=== PATIENT | male | born 1955 | race Caucasian/White ===

== ENCOUNTER 2019-07-06 10:16 | Outpatient (CLI) | payer MEDICARE, SELFPAY ==
--- NOTE | ~2019-07-06 | CT_ITS ---
EXAMINATION: CT lung screening EXAM DATE: 07/06/2019 10:50 INDICATION: Personal history of nicotine dependence. TECHNIQUE: Spiral low dose CT of the chest without contrast. Axial, coronal and sagittal images were reviewed. The dose-length product (DLP) for this examination was 174.03 mGy-cm. The exposure was t ailored according to patient size (auto mA exposure control), and iterative reconstruction (ASIR) was used as additional dose reduction technique. Comparison is made to prior examination from 07/03/2017. FINDINGS: There is a 6-7 mm nodule in the superior segment of the left lower lobe, measuring about 6 mm before. Probably unchanged accounting for improvements in scan technique. There is some debris i n the trachea. There is mild emphysema and hyperinflation. There is no mediastinal, hilar or axillar y lymphadenopathy. There are no pleural or pericardial effusions. There is no pneumothorax. Hea rt normal in size. There is moderate coronary arterial calcification, arterial sclerosis. Upper abd omen is unremarkable. Old right rib fractures. Cervical fusion hardware. Moderate thoracic spondyl osis. Diffuse loss of thoracic vertebral body heights. IMPRESSION: Lung-RADS category 2, benign appearance or behavior (<1% chance of malignancy); recommend continued LDCT screening in 1 year. Reviewed, dictated and finalized at location A. [employer]
== END 2019-07-06 10:17 | disposition home or self-care (01) ==
LOC: CHSIMG 10:21
PROVIDERS: PCP Internal Medicine; Visit Provider Internal Medicine
DX: Z12.2 Encounter for screening for malignant neoplasm of respiratory organs (principal); Z87.891 Personal history of nicotine dependence
CPT/HCPCS: G0297

== ENCOUNTER 2019-07-14 15:29 | Outpatient (CLI) | payer MEDICARE, SELFPAY ==
--- NOTE | ~2019-07-14 | MR_ITS ---
EXAMINATION: MR lumbar spine wo con DATE: 07/14/2019 16:17 INDICATION: Lumbago. TECHNIQUE: Magnetic resonance imaging (MRI) of the lumbar spine was performed without intravenous con trast. Sequences included sagittal T2-weighted FSE, sagittal T2-weighted FS FSE, sagittal T1-weighted FSE, and axial T2-weighted FSE. COMPARISON: Lumbar spine MRI 01/04/2017 FINDINGS: There is 14 degrees dextroscoliosis of thoracolumbar spine. There is 3 mm retrolisthesis of L1 on L2 and L2 on L3, 3 mm anterolisthesis of L4 on L5, and 3 mm retrolisthesis of L5 on S1. There is mild chronic anterior wedging of T11 and L1 vertebral bodies. There is severely decreased disc hei ght from T11-T12 through L5-S1. The distal spinal cord signal intensity is normal. The conus medullar is is at T12-L1. The following disc levels are specifically discussed: L1-L2: The disc is bulging and has an annular fissure. There is severe bilateral facet joint osteoart hritis. There is moderate right and severe left neural foraminal stenosis. There is mild central magaly l stenosis. L2-L3: The disc is bulging and has an annular fissure. There is severe bilateral facet joint osteoart hritis. There is moderate bilateral neural foraminal stenosis. There is mild central canal stenosis. L3-L4: The disc is bulging. There is severe bilateral facet joint osteoarthritis. There is moderate b ilateral neural foraminal stenosis. There is mild central canal stenosis. L4-L5: The disc is bulging and has an annular fissure. There is severe bilateral facet joint osteoart hritis. There is mild bilateral neural foraminal stenosis. There is mild central canal stenosis. L5-S1: The disc is bulging and has an annular fissure. There is mild right and moderate left facet melyssa int osteoarthritis. There is moderate bilateral neural foraminal stenosis. There is mild central magaly l stenosis. IMPRESSION: 1. Severe lumbar spondylosis. 2. Thoracolumbar dextroscoliosis. Reviewed, dictated and finalized at location A. PARTUM NURSE
== END 2019-07-14 15:30 | disposition home or self-care (01) ==
LOC: CHSIMG 15:30
PROVIDERS: PCP Internal Medicine; Visit Provider Anesthesiology Pain Medicine
DX: M54.5 Low back pain (principal); M48.00 Spinal stenosis, site unspecified; M54.16 Radiculopathy, lumbar region
CPT/HCPCS: 72148

== ENCOUNTER 2019-11-08 12:51 | Outpatient (RCR) | payer MEDICARE, SELFPAY ==
--- NOTE | 2019-11-12 06:55 | PTOPEVAL ---
Thank you for referring Troy Eubanks to [facility]. Please review, sign, date and return this plan of care HENNY. I agree with and certify that the following plan of care is medically necessary. Referring Physician Date Admitting Provider: Attending Provider: Sneha Ham, ALISON-LINDASY Referring Provider: *PT Outpatient Evaluation Start: 11/08/19 13:08 Freq: Status: Active Protocol: Document 11/08/19 13:08 BRYCE (Rec: 11/08/19 14:04 BRYCE [email or web address]) Therapy Assessment Status Assessment Status Assessment Status Evaluation Evaluation Information Problem Diagnosis lumbar radiculopathy, low back pain Onset 10/18/19 Additional Evaluation Detail Oswestry=62% limitation Subjective Information Pt. reports that he had Query Text:As Reported By Patient/ injection for back pain in Family July. He reports that he was doing well, till about 3 weeks ago. He reports sudden increase in pain in the middle of the night. He reports that he has improved since initial pain, but no a large amount. He describes dull stiff ache in the middle of the low back and a numb tingling feeling into both legs. He reports that he cannot sleep at night without pain increase. He reports that his goal is to decrease his low back pain. Prior Level of Function Activity Level (Last 3 Months) Occupation retired Hand Dominance Right Activity of Daily Living Ability Independent Indoor/Home Mobility Independent Community Mobility Independent Stairs Ability Independent Functional Cognition (Planning, Shopping Independent , Taking Medications) Cooking Yes Cleaning Yes Laundry Yes Shopping Yes Driving Yes Pain Assessment Pain Scale Pain Scale Used Numeric (1 - 10) Self Report Pain Assessment Lower Back Reported Pain Level 7 Pain Description Aching,Dull Pain Frequency Chronic Lowest Pain Intensity 7 Greatest Pain Intensity 10 Pain Aggravating Factors Sitting Pain Score Pain Score 7: Shasta
--- NOTE | 2019-12-17 07:11 | PTOPEVAL ---
Thank you for referring Troy Eubanks to [facility] [place] [facility] [place]. Please review, sign, date and return this plan of care HENNY. I agree with and certify that the following plan of care is medically necessary. Referring Physician Date Admitting Provider: Attending Provider: Sneha Ham, DIRECTOR OF MARKET RESEARCH-LINDSAY Referring Provider: *PT Outpatient Evaluation Start: 11/08/19 13:08 Freq: Status: Active Protocol: Document 12/08/19 14:00 BRYCE (Rec: 12/17/19 07:09 BRYCE [email or web address]) Therapy Assessment Status Assessment Status Assessment Status Progress Evaluation Information Problem Diagnosis lumbar radiculopathy, low back pain Onset 10/18/19 Additional Evaluation Detail Oswestry=50% limitation Subjective Information Pt. reports that therapy has Query Text:As Reported By Patient/ helped to reduce his pain. He Family notices that he is walking more comfortably and is able to perform light tasks around his yard. He states that given his progress he would like to continue to further improve his strength in order to walk further and stand better. Pain Assessment Timing of Pain Assessment Timing of Pain Assessment Pre-Treatment Pain Scale Pain Scale Used Numeric (1 - 10) Self Report Pain Assessment Lower Back Reported Pain Level 6 Pain Score Pain Score 6: Self Report Cervical and Lumbar Muscle Testing Lumbar Strength Upper Abdominal Strength 4-Good- Lower Abdominal Strength 3 Fair Lower Extremity Muscle Strength Testing General Lower Extremity Strength Gross Lower Extremity Strength bilateral hip flexion 5/5, bilateral hip extension 4/5, bilateral hip abduction 4/5, bilateral knee flexion 5/5, bilateral knee extension 5/5, bilateral ankle dorsiflexion 5 /5 Palpation Assessment Palpation Palpation Continue to note TTP along the area of the lumbar parapsinals and into the gluteal mm. Gait Assessment Gait Assessment Additional Ambulation Comments Pt. presents with improved flako and improved foot clearence with ambulation. PT Clinical Summary Clinical Summary Protocol: PTEVCODE PT Clinical Summary Pt. castillo attended a total of 10
== END 2020-01-05 08:47 | disposition home or self-care (01) ==
LOC: CHSPT 12:51
PROVIDERS: PCP Internal Medicine; Visit Provider Nurse Practitioner Family
DX: M54.5 Low back pain (principal); M54.10 Radiculopathy, site unspecified; M48.00 Spinal stenosis, site unspecified
CPT/HCPCS: 97014; 97110; 97140; 97161; G0283

== ENCOUNTER 2019-12-24 09:17 | Outpatient (CLI) | payer MEDICARE, SELFPAY ==
--- NOTE | ~2019-12-24 | XR_ITS ---
XR ankle RT min 3V DATE: 12/24/2019 09:36 INDICATION: Right ankle pain TECHNIQUE: 4 views COMPARISON: None FINDINGS: There is severe hypertrophic osteoarthritic change at the tibiotalar joint with severe join t space narrowing and spurring, patchy lucency and sclerosis at the talar dome. There is a plate and screws and cerclage wire along the distal fibula. No recent fracture or dislocation of the ankle or disruption of the ankle mortise is detected. IMPRESSION: Severe tibiotalar osteoarthritic changes Plate and screws along distal fibula Reviewed, dictated and finalized at location A.
== END 2019-12-24 09:18 | disposition home or self-care (01) ==
LOC: CHSIMG 09:19
PROVIDERS: PCP Internal Medicine; Visit Provider Internal Medicine
DX: M25.571 Pain in right ankle and joints of right foot (principal)
CPT/HCPCS: 73610

== ENCOUNTER 2021-12-12 07:00 | Outpatient (CLI) | payer MEDICARE, SELFPAY ==
--- NOTE | ~2021-12-12 | CT_ITS ---
EXAMINATION: CT lung screening DATE: 12/12/2021 09:03 INDICATION: History of tobacco dependence. TECHNIQUE: Computed tomography (CT) of the chest was performed without intravenous contrast. The dose -length product was 157.84 mGy-cm. Automated exposure control and iterative reconstruction technique were employed. COMPARISON: CT dated 07/06/2019 FINDINGS: Heart size normal. No significant pleural or pericardial effusion. No thoracic lymphadenopa thy. No significant pleural or pericardial effusion. Mild atherosclerosis. There are small low-density lesions in the liver with a new lesion in the left hepatic lobe. Further evaluation with contrast-enhanced CT or MRI is recommended. Increased size of 8 mm left lower lobe no dule, superior segment. No endobronchial lesions. No pneumothorax. No focal airspace consolidation. T here is right lower lobe atelectasis. IMPRESSION: 1. Lung Rads category 4B, very suspicious : Recommend follow-up PET/CT scan. Reviewed, dictated and finalized at location A.
[2021-12-12 08:07] LABS: Basophils Absolute Auto 0.05 K/mm3 (0.00-0.10); Basophils Percent Auto 0.9 % (0.0-1.0); Eosinophils Absolute Auto 0.35 K/mm3 (0.02-0.50); Eosinophils Percent Auto 6.2 % (1.0-6.0); Hematocrit 41.9 % (37.0-46.0); Hemoglobin 14.5 g/dL (12.4-15.3); Immature Granulocyte Absolute 0.01 K/mm3 (0.00-0.00); Immature Granulocyte Percent A 0.2 % (0.0-0.0); Lymphocytes Absolute Auto 1.71 K/mm3 (1.10-4.50); Lymphocytes Percent Auto 30.2 % (18.0-42.0); Mean Corpuscular HGB Conc 34.6 g/dL (32.0-36.0); Mean Corpuscular Hemoglobin 31.1 pg (27.0-31.0); Mean Corpuscular Volume 89.9 fL (78.0-102.0); Mean Platelet Volume 10.7 fl (8.7-11.0); Monocytes Absolute Auto 0.46 K/mm3 (0.10-0.90); Monocytes Percent Auto 8.1 % (2.0-11.0); Neutrophils Absolute Auto 3.1 K/mm3 (1.7-7.2); Neutrophils Percent Auto 54.4 % (50.0-70.0); Platelet Count Result 178 K/mm3 (150-420); Red Blood Count 4.66 M/mm3 (4.70-6.10); Red Cell Distribution Width 12.6 % (11.6-14.4); White Blood Count 5.7 K/mm3 (4.8-10.8)
[2021-12-12 08:17] LABS: Add Urine Microscopic? NO; Appearance Urine Clear (Clear); Bilirubin Urine Negative (Negative); Blood Urine Negative (Negative); Color Urine Light Yellow (Yellow); Glucose Urine UA Negative (Negative); Ketones Urine Negative (Negative); Leukocyte Esterase Ur Negative (Negative); Nitrate Urine Negative (Negative); Protein Urine Negative (Negative); Specific Grav Ur 1.025 (1.010-1.020); Urobilinogen Urine 0.2 mg/dL (0.2-1.0); pH Urine 5.5 (5.0-8.0)
[2021-12-12 08:40] LABS: Alanine Aminotransferase 24 U/L (16-63); Albumin Level 3.8 g/dL (3.4-5.0); Alkaline Phosphatase 61 U/L (46-116); Anion Gap 9 mmol/L (8-16); Aspartate Amino Transferase 15 U/L (15-37); Bilirubin,Total 0.6 mg/dL (0.00-1.00); Blood Urea Nitrogen 13 mg/dL (7-18); Calcium 8.3 mg/dL (8.5-10.1); Carbon Dioxide 25 mmol/L (21-32); Chloride 107 mmol/L (98-108); Cholesterol 183 mg/dL (0-200); Estimated Glomerular Filt Rate > 60; Glucose 96 mg/dL (70-99); HDL Direct 47 mg/dL (40-60); LDL Cholesterol Calculated 115 mg/dL (<130); Osmolality Calculated 292 mOsm/kg (285-295); Potassium 4.1 mmol/L (3.5-5.1); Prostate Specific Antigen 11.7 ng/mL (< OR = 4.0); Sodium 141 mmol/L (136-145); Thyroid Stimulating Hormone 0.92 uIU/mL (0.36-3.74); Total Protein 6.6 g/dL (6.4-8.2); Triglycerides 103 mg/dL (0-150)
[2021-12-12 09:25] LABS: CRP < 0.5 mg/dL (0.0-0.9)
== END 2021-12-12 07:01 | disposition home or self-care (01) ==
PROVIDERS: PCP Internal Medicine; Visit Provider Internal Medicine
DX: Z12.2 Encounter for screening for malignant neoplasm of respiratory organs (principal); Z87.891 Personal history of nicotine dependence; G89.29 Other chronic pain; E78.5 Hyperlipidemia, unspecified; Z12.5 Encounter for screening for malignant neoplasm of prostate; Z00.00 Encounter for general adult medical examination without abnormal findings
CPT/HCPCS: 36415; 71271; 80053; 80061; 81003; 84153; 84443; 85025; 86140; G0103

== ENCOUNTER 2021-12-28 09:20 | Outpatient (CLI) | payer MEDICARE, SELFPAY ==
--- NOTE | 2021-12-28 13:07 | PFT_ITS ---
This report was recreated on February 01, 2022. Original report was signed by Dr. Bart Mccartney on December 28, 2021 at 1328. PFT Procedure Performed PFT Procedure Performed Spirometry with Pre/Post Bronchodilator Plethysmography (Lung Vol) Diffusing Cap (DLCO) Flow Vol Loop PFT Interpretation DOS: 12/28/2021 REQUESTING: Dr Mccartney REASON FOR TESTING: Dyspnea PULMONARY FUNCTION TESTS Results are reliable and reproducible. Spirometry: Pre-bronchodilator FEV1 is 99% predicted, 2.92 L, normal. Pre- bronchodilator FVC is 125% predicted, 4.76 L. FEV1/FVC ratio is 78% predicted, normal. The TNX96-84% is 37% predicted, 1.14 L. After bronchodialtor, there is a 1% increase in the FVC, and 1% decreased in the FEV1, and 11% decrease in FEF25- 75%. These are not statistically significant amounts. Lung volumes: TLC is 98% predicted, 5.97 L. RV is 52% predicted, 1.11 L. RV/TLC is below normal limits, 20% predicted. FRC 78%, 2.60 L. ERV 1.28 L. Airway resistance is 259%, elevated. Diffusion: DLCO is 87% predicted, 18.7 mL/min/mmHg, normal. DLCO/VA is 80%, 2.93 ml/min/mmHg, normal. Flow volume loop: Sawtooth pattern of the expiratory limb which has limited clinical relevance. IMPRESSION: Normal spirometry without response to bronchodilator. Normal lung volumes. No hyperinflation. No air trapping. Normal diffusion. Lack of response to bronchodilator should not preclude use if clinically indicated. Lucy Mccartney MD This dictation may have been done utilizing a voice recognition system. Attempts have been made to correct errors. However, there may be uncorrected grammatical, spelling, and recognition errors present. Report Initialized date/time: Lucy Mccartney MD 12/28/21 / 1309 Electronically signed by: uLcy Mccartney MD 12/28/21 [id number] [facility]
--- NOTE | 2021-12-28 13:07 | PFT_ITS ---
This report was recreated on February 01, 2022. Original report was signed by Dr. Bart Mccartney on December 28, 2021 at 1328. PFT Procedure Performed PFT Procedure Performed Spirometry with Pre/Post Bronchodilator Plethysmography (Lung Vol) Diffusing Cap (DLCO) Flow Vol Loop PFT Interpretation DOS: 12/28/2021 REQUESTING: Dr Mccartney REASON FOR TESTING: Dyspnea PULMONARY FUNCTION TESTS Results are reliable and reproducible. Spirometry: Pre-bronchodilator FEV1 is 99% predicted, 2.92 L, normal. Pre- bronchodilator FVC is 125% predicted, 4.76 L. FEV1/FVC ratio is 78% predicted, normal. The BRA66-39% is 37% predicted, 1.14 L. After bronchodialtor, there is a 1% increase in the FVC, and 1% decreased in the FEV1, and 11% decrease in FEF25- 75%. These are not statistically significant amounts. Lung volumes: TLC is 98% predicted, 5.97 L. RV is 52% predicted, 1.11 L. RV/TLC is below normal limits, 20% predicted. FRC 78%, 2.60 L. ERV 1.28 L. Airway resistance is 259%, elevated. Diffusion: DLCO is 87% predicted, 18.7 mL/min/mmHg, normal. DLCO/VA is 80%, 2.93 ml/min/mmHg, normal. Flow volume loop: Sawtooth pattern of the expiratory limb which has limited clinical relevance. IMPRESSION: Normal spirometry without response to bronchodilator. Normal lung volumes. No hyperinflation. No air trapping. Normal diffusion. Lack of response to bronchodilator should not preclude use if clinically indicated. Lucy Mccartney MD This dictation may have been done utilizing a voice recognition system. Attempts have been made to correct errors. However, there may be uncorrected grammatical, spelling, and recognition errors present. Report Initialized date/time: Lucy Mccartney MD 12/28/21 / 1308 Electronically signed by: Lucy Mccartney MD 12/28/21 [id number] [facility]
== END 2021-12-28 09:21 | disposition home or self-care (01) ==
LOC: CHSCARD 09:22
PROVIDERS: PCP Internal Medicine; Visit Provider Internal Medicine Critical Care Medicine
DX: Z87.891 Personal history of nicotine dependence (principal); R06.02 Shortness of breath
CPT/HCPCS: 94060; 94726; 94729

== ENCOUNTER 2022-01-01 08:53 | Outpatient (CLI) | payer MEDICARE, SELFPAY ==
--- NOTE | 2021-12-28 13:03 | P.PCNPFT_ITS ---
PFT Procedure Performed PFT Procedure Performed Spirometry with Pre/Post Bronchodilator Plethysmography (Lung Vol) Diffusing Cap (DLCO) Flow Vol Loop PFT Interpretation DOS: 12/28/2021 REQUESTING: Dr Mccartney REASON FOR TESTING: Dyspnea PULMONARY FUNCTION TESTS Results are reliable and reproducible. Spirometry: Pre-bronchodilator FEV1 is 99% predicted, 2.92 L, normal. Pre- bronchodilator FVC is 125% predicted, 4.76 L. FEV1/FVC ratio is 78% predicted, normal. The SOS26-88% is 37% predicted, 1.14 L. After bronchodialtor, there is a 1% increase in the FVC, and 1% decreased in the FEV1, and 11% decrease in FEF25- 75%. These are not statistically significant amounts. Lung volumes: TLC is 98% predicted, 5.97 L. RV is 52% predicted, 1.11 L. RV/TLC is below normal limits, 20% predicted. FRC 78%, 2.60 L. ERV 1.28 L. Airway resistance is 259%, elevated. Diffusion: DLCO is 87% predicted, 18.7 mL/min/mmHg, normal. DLCO/VA is 80%, 2.93 ml/min/mmHg, normal. Flow volume loop: Sawtooth pattern of the expiratory limb which has limited clinical relevance. IMPRESSION: Normal spirometry without response to bronchodilator. Normal lung volumes. No hyperinflation. No air trapping. Normal diffusion. Lack of response to bronchodilator should not preclude use if clinically indicated. Lucy Mccartney MD
--- NOTE | ~2022-01-01 | PE_ITS ---
EXAMINATION: PET skull to mid thigh DATE: 01/01/2022 10:57 INDICATION: Solitary pulmonary nodule TECHNIQUE: Blood glucose level was 99 mg/dL. 10.697 mCi of 18-fluorodeoxyglucose (18-FDG) was adminis tered i.v. Low dose computed tomography (CT) images were acquired from the base of the brain to the p roximal thighs for attenuation correction and anatomic localization. Positron emission tomography (PE T) images were acquired in the same distribution beginning 51 minutes after injection. The dose-lengt h product (DLP) was 793.38 mGy-cm. COMPARISON: Thoracic CT stated 12/12/2021, 07/06/2019, 07/03/2017, and 03/19/2013 FINDINGS: Head/neck: No abnormal FDG uptake is identified. FDG avid cavity in the oral cavity without suspiciou s CT correlate is likely physiologic. Chest: There is an 8 mm nodule of the superior segment of the left lower lobe without associated FDG uptake. There is mild dependent atelectasis. Healed right-sided rib fractures are noted. No pleural e ffusion or pneumothorax. No pathologically enlarged thoracic lymph nodes are identified. The heart si ze is normal. There is calcified coronary artery atherosclerosis. Mild bilateral gynecomastia is note d. Abdomen/pelvis/proximal thighs: No abnormal FDG uptake is identified. Physiologic FDG activity is pre sent in the bowel and urinary tract. Stable hypoattenuating lesions of the liver do not demonstrate F DG uptake, and are consistent with cysts. The spleen, pancreas, gallbladder, and adrenal glands are n ormal. The kidneys are unremarkable. There is calcified atherosclerosis of the aorta and many of the other arteries. Musculoskeletal: No abnormal FDG uptake is identified. There are changes of anterior fusion procedure in the lower cervical spine. There is severe thoracic and lumbar spondylosis. IMPRESSION: 1. Stable left lung nodule without associated FDG uptake, consistent with a benign finding, probable old granulomatous disease. Reviewed, dictated and finalized at location A. IMPRESSION: 1. Stable left lung nodule without associated FDG uptake, consistent with a soumya ign finding, probable old granulomatous disease.
[2022-01-01 09:32] LABS: Glucose Point of Care 99 mg/dl (65-105)
== END 2022-01-01 08:54 | disposition home or self-care (01) ==
LOC: ANHIMG 08:55
PROVIDERS: PCP Internal Medicine; Visit Provider Internal Medicine Critical Care Medicine
DX: R91.1 Solitary pulmonary nodule (principal); R06.00 Dyspnea, unspecified
CPT/HCPCS: 78815; A9552

== ENCOUNTER 2022-08-09 11:33 | Outpatient (CLI) | payer MEDICARE, SELFPAY ==
--- NOTE | ~2022-08-09 | XR_ITS ---
Left Shoulder Technique: AP and scapular Y views were obtained. Clinical History: Pain Findings: No fracture or dislocation is seen. Osseous alignment is anatomic. The glenohumeral and acr omioclavicular joint spaces are preserved. Soft tissues are unremarkable. Impression: Unremarkable left shoulder radiographs. Reviewed, dictated and finalized at [facility]. Impression: Unremarkable left shoulder radiographs.
== END 2022-08-09 11:34 | disposition home or self-care (01) ==
LOC: CHSIMG 11:35
PROVIDERS: PCP Internal Medicine; Visit Provider Internal Medicine
DX: M25.512 Pain in left shoulder (principal)
CPT/HCPCS: 73030

== ENCOUNTER 2022-09-24 08:53 | Outpatient (RCR) | payer MEDICARE, SELFPAY ==
--- NOTE | 2022-09-24 10:09 | PTOPEVAL1 ---
Assessment and note entered by Yaz Garvin DPT Evaluation Information Assessment Status Evaluation Diagnosis low back pain Onset 09/18/22 Subjective Information Patient reports chronic back pain that has increased significantly over the last 2 weeks. He reports that he has a big yard and does all of the work. He reports his first injection he got relief from but the following ones have not decreased pain. He reports pain is in the center of the back with pressure with numbness and tinling going down both legs. He reports difficulty with sleeping, prolonged positioning, walking, and reports decreased balance. 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 Reported Pain Level Pain Score 8: Self Report Assessment PT Clinical Summary Patient is a 67 year old male who presents to PT with low back pain. He demonstrates decreased B LE strength, decreased B LE flexibility and decreased lumbar mobility limiting his ability to sleep, ambulate and perform yard work. He would benefit from skilled PT to address impairments and return to PLOF. Plan of Care Interventions Electrical Stimulation,Gait Training,Hot Pack/Cold Pack,Manual Therapy,Mechanical Traction,Neuro Re- education,Patient/Caregiver Educati,Therapeutic Activities,Therapeutic Exercise PT Services Indicated Yes Treatment Frequency and 2x weekly for 12 visits Duration These treatments will address the objective and functional deficits as defined above. The patient will be advanced safely and appropriately in order for the patient to progress towards his/her prior level of function. Additional exercises will be introduced and as well as a comprehensive home exercise program upon discharge, if needed, ?to ensure carryover of functional gains achieved in the clinic. This treatment plan has been reviewed and agreement upon by the patient.
--- NOTE | 2022-11-07 09:38 | PTOPPROG ---
Assessment and note entered by JT File, PT Evaluation Information Assessment Status Evaluation Diagnosis low back pain Onset 09/18/22 Subjective Information patient reports he feels alright this date. he repoerts he continues to have pain all the time in the lower back. he reports pain is increased with activities. he reports some days are still really bad if he is bery active. Assessment PT Clinical Summary mr. alexandre presents to skilled PT for his 10th skilled therapy visit this date. he continues to display poor posture, weak core, poor flexibility, and pain in the lower back. he has achieved independence with HEP at home, but has not yet met any other goals. he is making progress towards goals, and would benefit from continued skilled PT per the initial POC. Plan of Care Interventions Electrical Stimulation,Gait Training,Hot Pack/Cold Pack,Manual Therapy,Mechanical Traction,Neuro Re- education,Patient/Caregiver Educati,Therapeutic Activities,Therapeutic Exercise PT Services Indicated Yes Treatment Frequency and continue skilled PT 2x weekly for 2 more visits Duration per the initial POC These treatments will address the objective and functional deficits as defined above. The patient will be advanced safely and appropriately in order for the patient to progress towards his/her prior level of function. Additional exercises will be introduced and as well as a comprehensive home exercise program upon discharge, if needed, ?to ensure carryover of functional gains achieved in the clinic. This treatment plan has been reviewed and agreement upon by the patient.
== END 2022-12-10 20:00 | disposition home or self-care (01) ==
LOC: CHSPT 08:53
DX: M54.16 Radiculopathy, lumbar region (principal)
CPT/HCPCS: 97110; 97140; 97150; 97161

== ENCOUNTER 2022-12-06 10:16 | Outpatient (CLI) | payer MEDICARE, SELFPAY ==
--- NOTE | ~2022-12-06 | CT_ITS ---
CT Scan of the Chest without Contrast: Clinical Indication: Solitary pulmonary nodule Technique: Contiguous sections were acquired throughout the chest without intravenous contrast. Dose reduction technique was used on this scan by utilizing automated exposure control and iterative recon struction technique. The dose-length product (DLP) was 247.05 mGy-cm. COMPARISON: 12/12/2021 and 07/06/2019 Findings: There is no evidence of any significant mediastinal, hilar or axillary lymphadenopathy. There atheros clerotic calcifications of the aorta and coronary arteries. There is no evidence of pleural or pericardial effusion. Stable 8 mm left lower lobe pulmonary nodule noted. Images through the upper abdomen reveal no abnormalities. Stable chronic compression deformities note d in the spine. Impression: Stable 8 mm left lower lobe pulmonary nodule. Reviewed, dictated and finalized at [facility]. Impression: Stable 8 mm left lower lobe pulmonary nodule.
== END 2022-12-06 10:17 | disposition home or self-care (01) ==
LOC: CHSIMG 10:17
PROVIDERS: PCP Internal Medicine; Visit Provider Internal Medicine Critical Care Medicine
DX: R91.1 Solitary pulmonary nodule (principal)
CPT/HCPCS: 71250

== ENCOUNTER 2023-12-08 08:00 | Outpatient (CLI) | payer MEDICARE, SELFPAY ==
--- NOTE | ~2023-12-08 | CT_ITS ---
EXAMINATION: CT diagnostic chest wo con DATE: 12/08/2023 08:34 INDICATION: follow up nodule JAH TECHNIQUE: Computed tomography (CT) of the chest was performed without intravenous contrast. Addition al 3D reconstructions utilizing coronal maximum intensity projection (MIP) were performed. Automated exposure control and iterative reconstruction technique were employed. The dose-length product was 26 5.01 mGy-cm. COMPARISON: 12/06/2022 and PET/CT dated 01/01/2022 FINDINGS: No interval change in a 8 mm nodule in the superior segment of the left lower lobe which is without e vident increased FDG uptake on prior PET/CT. Tiny calcified nodule in the right middle lobe consisten t with old granulomatous disease. Mild linear discoid atelectasis at the bilateral lung bases. No pne umonia, pulmonary edema, pleural effusion or pneumothorax. Heart size is normal. Atherosclerotic michael nary artery calcific lesion. No pericardial effusion. Thoracic aorta is normal in caliber. No patholo gically enlarged thoracic lymphadenopathy. Mild left and moderate to severe right glenohumeral osteoa rthritis. A few old posterior right rib fractures. C5 C7 anterior spinal fusion with anterior plate a nd screw fixation. Moderate thoracic and severe upper lumbar spondylosis with a few chronic compressi on fractures in the mid thoracic and upper lumbar spine.. IMPRESSION: 1. No interval change in 2 years of an 8 mm nodule in the superior segment of the left lower lobe, torin nicole sequela of old granulomatous disease. Reviewed, dictated and finalized at location A. IMPRESSION: 1. No interval change in 2 years of an 8 mm nodule in the superior segment of t he left lower lobe, likely sequela of old granulomatous disease.
== END 2023-12-08 08:01 | disposition home or self-care (01) ==
LOC: CHSIMG 08:01
PROVIDERS: PCP Internal Medicine; Visit Provider Internal Medicine Critical Care Medicine
DX: R91.1 Solitary pulmonary nodule (principal); Z87.891 Personal history of nicotine dependence
CPT/HCPCS: 71250

== ENCOUNTER 2023-12-09 21:09 | Emergency (ER) | payer MEDICARE, SELFPAY ==
[2023-12-09 21:09] VITALS: BP 148/84; PULSE 60; RESP 16; TEMP 36.8; O2SAT 94
--- NOTE | 2023-12-09 21:31 | ED.GENADULT ---
HPI - General Adult General Chief complaint: Skin/Abscess/Foreign Body Stated complaint: Tick on head Time Seen by Provider: 12/09/23 21:18 History of Present Illness HPI narrative: the patient is a 68-year-old male who was gardening this evening and then felt a nodule just superior to his right ear at the temples. He is worried about a tick since he was outside. He could not see any movement. He has not noticed this nodule before. He comes for evaluation. He has had ticks in the past but does not have Lyme disease. Other comorbidities as noted below. Related Data Home Medications Medication Instructions Recorded Confirmed acetaminophen 325 mg capsule 325 mg PO Q6H PRN 12/01/23 (Tylenol) hydrocodone 7.5 mg-acetaminophen 1 tablet PO TID PRN 12/01/23 325 mg tablet ibuprofen 100 mg chewable tablet 200 mg PO Q6H PRN 12/01/23 Allergies Allergy/AdvReac Type Severity Reaction Status Date / Time codeine Allergy Mild BLACK OUT Verified 12/01/23 14:48 Review of Systems Review of Systems: All systems reviewed & are unremarkable except as noted in HPI and below Constitutional: Constitutional: Denies chills, Denies excessive sweating, Denies fatigue, Denies fever(s), Denies headache(s) and Denies weakness Eyes: Eyes: Denies change in vision and Denies photophobia ENT: Denies dysphagia, Denies dizziness, Denies headache(s), Denies lip swelling, Denies nasal congestion, Denies sore throat and Denies tongue swelling Cardiovascular: Cardiovascular: Denies chest pain, Denies syncope, Denies rapid heart rate and Denies dyspnea Respiratory: Respiratory: Denies cough, Denies dyspnea and Denies wheezing Gastrointestinal: Gastrointestinal: Denies abdominal pain, Denies constipation, Denies dysphagia, Denies diarrhea, Denies nausea and Denies vomiting Genitourinary: Genitourinary: Denies hematuria, Denies dysuria, Denies urinary frequency and Denies urinary urgency Musculoskeletal: Musculoskeletal: Denies back pain, Denies myalgias, Denies arthralgias, Denies joint swelling and Denies numbness Integumentary/Breasts: Skin/Breast: Denies pruritus, Denies erythema and Denies rash Neurologic: Denies confusion, Denies dizziness, Denies syncope, Denies headache(s), Denies focal weakness, Denies numbness and Denies weakness Psychiatric: Psychiatric: Denies anxiety and Denies confusion Endocrine: Endocrine: Denies excessive sweating and Denies fatigue Hematologic/Lymphatic: Hematologic/Lymphatic: Denies easy bleeding and Denies easy bruising Allergic/Immunologic: Allergic/Immunologic: Denies lip swelling, Denies tongue swelling and Denies wheezing PMFSH Past Medical History Medical History Chronic pain syndrome COPD (chronic obstructive pulmonary disease) Degenerative joint disease Spinal stenosis Surgical History Surgical History History of appendectomy History of elbow surgery right side History of fusion of cervical spine C5, C6-7 cervical discectomy with fusion 12/2011 History of shoulder surgery right side Status post ORIF of fracture of ankle Social History Social History Social History: , retired journeyman welder/plumber pipe fitting; lives at home with his . Smoking status: Current some day smoker (quit cigarettes 20yr ago, smokes 1 oz pipe tob/week) Alcohol intake: never Substance use: never Living arrangements: with family Occupation/Education: retired Gender identity (if verbalized by the patient): Male Exam Const: General: healthy appearing, no acute distress, alert and well nourished Nutritional Appearance: well nourished Orientation/consciousness: patient oriented x3 Limitations: no limitations HENMT: Head: normal to inspection Ears: external ears normal Face/Nose/Sinus: normal facial exam Face and sinus: normal facial exam Mout
== END 2023-12-09 21:52 | disposition home or self-care (01) ==
LOC: CHSED 21:50
PROVIDERS: Emergency Provider Emergency Medicine; PCP Internal Medicine
DX: L98.8 Other specified disorders of the skin and subcutaneous tissue (principal)
CPT/HCPCS: 99281

== ENCOUNTER 2024-06-24 10:27 | Outpatient (CLI) | payer MEDICARE, SELFPAY ==
--- NOTE | ~2024-06-24 | XR_ITS ---
EXAMINATION: XR chest 2V 06/24/2024 11:02 INDICATION: Pneumonia PROCEDURE: 2 view chest COMPARISON: Comparison to multiple prior studies sequentially, with oldest reviewed study dated 01/28. FINDINGS: The lungs are clear. The cardiomediastinal silhouette is within normal limits. There are no pleural effusions. There is no pneumothorax suspected. There is a healed right sixth rib fractur e. IMPRESSION: 1: NO ACUTE CARDIOPULMONARY DISEASE. Reviewed, dictated and finalized at location B. ATIONAL DIRECTOR
--- OUTSIDE RECORDS SUMMARY | 2024-06-24 10:52 | XMS_ITS | Referral Summary ---
Author Organization [facility] Address [address] [place] [address] Care Team Providers Care Welfare Investigator Name Role Phone José Luis Pryor MD Primary Care Provider [phone] Allergies Active Allergy Reactions Criticality Noted Date Comments Codeine Other (See comments),Rash Medium 01/07/2020 Reaction: Cramps Meloxicam Other (See comments) Low 01/07/2020 Abdominal pain Medications HYDROcodone-acet aminophen (NORCO) 7.5-325 mg per tablet Take 1 tablet by mouth 3 (three) times a day as needed 12/13/2019 Active indomethacin (INDOCIN) 50 mg capsule Take 50 mg by mouth 2 times daily Active Active Problems Problem Noted Date Diagnosed Date Degeneration of intervertebral disc of cervical region 12/29/2012 Surgical follow-up care 02/04/2012 Cervicalgia 02/03/2012 Cervical radiculopathy 11/07/2011 Osteoarthritis of cervical spine 11/07/2011 Social History Tobacco Use Types Packs/Day Years Used Date Smoking Tobacco: Every Day Personal Safety Answer Date Recorded Getting School Help Needed Not on file 08/01 Sex and Gender Information Value Date Recorded Sex Assigned at Not on file 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 Gender Identity Not on file Sexual Orientation Not on file Last Filed Vital Signs Vital Sign Reading Time Taken Comments Blood Pressure 142/77 12/24/2011 6:32 AM CDT Pulse 93 12/24/2011 6:32 AM CDT Temperature - - Respiratory Rate - - Oxygen Saturation 95% 12/24/2011 1:30 AM CDT Inhaled Oxygen Concentration - - Weight 86.2 kg (190 lb) 01/14/2020 9:13 AM CDT Height 172.7 cm (5' 8 ) 01/14/2020 9:13 AM CDT Body Mass Index 28.89 01/14/2020 9:13 AM CDT Plan of Treatment Not on file Insurance MEDICARE COMMERCIAL [facility] MEDICARE Care Teams Welfare Investigator Relationship Specialty Start Date End Date José Luis Pryor MD PCP - General Internal Medicine 01/06/20
--- OUTSIDE RECORDS SUMMARY | 2024-06-24 10:52 | XMS_ITS | Clinical Summary ---
Author Organization [facility] Address [address] [place] [address] Care Team Providers Care Technology Integration Specialist Name Role Phone José Luis Pryor MD Primary Care Provider [phone] Allergies Active Allergy Reactions Criticality Noted Date [...] radiculopathy 11/07/2011 Osteoarthritis of cervical spine 11/07/2011 Surgical History Surgery Date Site/Laterality Comments APPENDECTOMY ANKLE FRACTURE SURGERY BACK SURGERY Social History Tobacco Use Types Packs/Day Years Used Date Smoking Tobacco: Every Day Personal Safety Answer Date Recorded Getting School Help Needed Not on file 08/01 Sex and Gender Information Value Date Recorded Sex Assigned at Not on file 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
--- OUTSIDE RECORDS SUMMARY | 2024-06-24 10:52 | XMS_ITS | Clinical Summary ---
Author Organization [facility] Address [facility] [place] [address] Care Team Providers Care Shop Technician Name Role Phone José Luis Pryor MD Primary Care Provider [phone] Naida Diaz APRN FERTILIZER LOADER-C Unavailable Allergies Active Allergy Reactions Criticality Noted Date Comments Codeine Unknown 01/07/2020 Meloxicam Other (see comment) 01/07/2020 Abdominal pain Medications HYDROcodone-andrew taminophen 7.5-325 MG tablet Take 1 tablet by mouth 3 (three) times daily as needed. 12/13/2019 Active aspirin 81 MG chewable tablet Chew 1 tablet (81 mg total) by mouth daily. 30 tablet 01/27/2020 Active atorvastatin 20 MG tablet Take 1 tablet (20 mg total) by mouth nightly at bedtime. 30 tablet 5 03/03/2020 Active metoprolol succinate ER 25 MG 24 hr tablet Take 1 tablet (25 mg total) by mouth daily. 30 tablet 5 03/03/2020 Active Active Problems Problem Noted Date Diagnosed Date Coronary artery calcification seen on CT scan Current smoker 01/27/2020 Shortness of breath 01/27/2020 Family History Medical History Relation Comments Coronary artery disease Father Stroke Father Cancer Mother Hypertension Mother Kidney Disease Mother Coronary artery disease Paternal Grandfather Relation Status Comments Father Mother Paternal Grandfather Social History Tobacco Use Types Packs/Day Years Used Date Smoking Tobacco: Every Day Smokeless Tobacco: Never Tobacco Cessation:Ready to Q uit: No Sex and Gender Information Value Date Recorded Sex Assigned at Not on file Legal Sex Male 7:42 PM CDT Gender Identity Not on file Sexual Orientation Not on file 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 Not on file Not on file Last Filed Vital Signs Vital Sign Reading Time Taken Comments Blood Pressure 104/86 03/03/2020 9:41 AM CDT Pulse 59 03/03/2020 9:41 AM CDT Temperature 36.7 C (98.1 F) 03/03/2020 9:41 AM CDT Respiratory Rate 18 03/03/2020 9:41 AM CDT Oxygen Saturation 95% 03/03/2020 9:41 AM CDT Inhaled Oxygen Concentration - - Weight 84.7 kg (186 lb 11.7 oz) 03/03/2020 9:01 AM CDT Height 172.7 cm (5' 7.99 ) 03/03/2020 9:01 AM CD T Body Mass Index 28.4 03/03/2020 9:01 AM CDT Plan of Treatment Health Maintenance Due Date Last Done Comments Colorectal Cancer Screening Colonoscopy (10 Years) 1954 Pneumococcal Vaccine: 65+ Ye ars (1 of 2 - PCV) 1960 Hepatitis C 1972 DTaP, Tdap and Td Vaccines ( 1 - Tdap) 1973 Zoster Vaccines (1 of 2) 2004 Annual Medicare Wellness Visit 08/14/2019 COVID-19 Vaccine (1 - 2023-2 5 season) 2024 Influenza Adult (#1) 2024 RSV Immunization or 60+ Years (1 - 1-dose 75+ series) 2029 Meningococcal B Vaccine Aged Out No l onger eligible based on patient's age to complete this topic Meningococcal Vaccine Aged Out No jillian donavan eligible based on patient's age to complete this topic RSV Immunizations Under 20 Months Aged Out No longer eligible based on patient's age to complete this topic Insurance MEDICARE [facility] FINANCIAL MEDICARE [facility] FINANCIAL Care Teams Shop Technician Relationship Specialty Start Date End Date José Luis Pryor MD [address] [place] [address] PCP - General INTERNAL MEDICINE 01/07/20 Naida Diaz, NIKKY, FERTILIZER LOADER-C [address] [facility] [address] [place] [address] NURSE PRACTITIONER 01/27/20
--- OUTSIDE RECORDS SUMMARY | 2024-06-24 10:52 | XMS_ITS | Encounter Summary ---
Author Organization [facility] Address [address] [place] [address] Care Team Providers Care Senior Software Development Manager Name Role Phone José Luis Pryor MD Primary Care Provider [phone] Naida Diaz APRN INSPECTOR TECHNICIAN-C Unavailable [phone] Encounter Details Date Type Department Care Team (Late st Contact Info) Description 01/07/2020 Abstract [facility] [address] [place] [id number] Abstract, Doc [facility] Social History Tobacco Use Types Packs/Day Years Used Date Smoking Tobacco: Every Day Sex and Gender Information Value Date Recorded Sex Assigned at Not on file Legal Sex Male 7:42 PM CDT Gender Identity Not on file Sexual Orientation Not on file 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 file Not on file Not on file documented as of this encounter Plan of Treatment Not on file documented as of this encounter Procedures Procedure Name Priority Date/Time Associated Diagnosis Comments LIPID PANEL (OUTSIDE LAB) Routine 08/23/2016 CMP (ABSTRACTED LAB) Routine 08/23/2016 documented in this encounter Results * LIPID PANEL (OUTSIDE LAB) (08/23/2016) CHOLESTEROL 195 TRIGLYCERIDES 132 HDL 42 LDL (CALCULATED) 127 CHOL/HDL RATIO 4.6 08/23/2016 us Doc [facility] Abstract LAB-OUTSIDE/ABSTRACTED Final Result * (ABNORMAL) CMP (ABSTRACTED LAB) (08/23/2016) SODIUM S/P/B 143 POTASSIUM S/P/B 4.5 CHLORIDE S/P/B 106 CO2 28 BUN 15 CREATININE S/P/B 0.83 0.7 - 1.3 EGFR AFR. AMER. 100(A) <=90 EGFR NON-AFR. AMER. 100(A) <=90 CALCIUM S/P/B 8.7 GLUCOSE 94 mg/dL TOTAL PROTEIN S/P/B 6.8 ALBUMIN S/P/B 3.9 3.5 - 5.0 AST 17 ALT 22 ALKALINE PHOSPHATASE S/P/B 73 BILIRUBIN TOTAL S/P/B 0.37 08/23/2016 us Doc [facility] Abstract LAB-OUTSIDE/ABSTRACTED Final Result documented in this encounter Visit Diagnoses Not on filedocumented in this encounter Additional Health Concerns Infection Onset Date Last Indicated Resolved Time COVID-19 Rule Out 02/29/2020 02/29/2020 03/01/2020 6:30 PM CDT documented as of this encounter Care Teams Senior Software Development Manager Relationship Specialty Start Date End Date José Luis Pryor MD [address] [place] [address] PCP - General INTERNAL MEDICINE 01/07/20 Naida Diaz, FAN MAIL EDITOR, INSPECTOR TECHNICIAN-C [address] [facility] [address] [place] [address] NURSE PRACTITIONER 01/27/20 documented as of this encounter
[2024-06-24 10:55] LABS: Hematocrit 43.4 % (37.0-46.0); Hemoglobin 14.7 g/dL (12.4-15.3); Mean Corpuscular HGB Conc 33.9 g/dL (32-36); Mean Corpuscular Hemoglobin 29.5 pg (27.0-31.0); Mean Corpuscular Volume 87.1 fL (78.0-102.0); Mean Platelet Volume 10.7 fl (8.7-11.0); Platelet Count Result 204 K/mm3 (150-420); Red Blood Count 4.98 M/mm3 (4.70-6.10); Red Cell Distribution Width 12.4 % (11.6-14.4); White Blood Count 4.2 K/mm3 (4.8-10.8)
--- NOTE | 2024-06-24 10:55 | ECG_ITS ---
Test Date: 2024-06-24 11:17:01 Measurements Intervals [place] Rate: 50 P: 72 DC: 173 QRS: 52 QRSD: 109 T: 0 QT: 421 QTc: 386 Interpretive Statements SINUS BRADYCARDIA VOLTAGE CRITERIA FOR LVH BORDERLINE ST-T WAVE ABNORMALITY- INFERIOR LEADS BORDERLINE ECG No previous ECG available for comparison Electronically Signed On 06-24-2024 11:15:52 HAND SANDER by Michael Pierce D.O.
[2024-06-24 11:07] LABS: Add Urine Microscopic? NO; Appearance Urine Clear (Clear); Bilirubin Urine Negative (Negative); Blood Urine Negative (Negative); Color Urine Yellow (Yellow); Glucose Urine UA Negative (Negative); Ketones Urine Negative (Negative); Leukocyte Esterase Ur Negative (Negative); Nitrate Urine Negative (Negative); Protein Urine Negative (Negative); Urobilinogen Urine 0.2 mg/dL (0.2-1.0)
[2024-06-24 11:23] LABS: Alanine Aminotransferase 24 U/L (16-63); Albumin Level 3.4 g/dL (3.4-5.0); Alkaline Phosphatase 71 U/L (46-116); Anion Gap 9 mmol/L (4-12); Aspartate Amino Transferase 18 U/L (15-37); Bilirubin,Total 0.5 mg/dL (0.00-1.00); Blood Urea Nitrogen 14 mg/dL (7-18); CRP 2.8 mg/dL (0.0-0.9); Calcium 8.6 mg/dL (8.5-10.1); Carbon Dioxide 29 mmol/L (21-32); Chloride 105 mmol/L (98-108); Estimated Glomerular Filt Rate > 60; Glucose 119 mg/dL (70-99); NT Pro B Type Natriuretic Pept 154 pg/mL (0-125); Osmolality Calculated 297 mOsm/kg (285-295); Potassium 3.9 mmol/L (3.5-5.1); Sodium 143 mmol/L (136-145); Total Protein 7.3 g/dL (6.4-8.2); Troponin I 4.5 ng/L (0.00-60.4)
[2024-06-24 11:33] LABS: RSV RNA, RT-PCR Negative (Negative)
[2024-06-24 15:18] LABS: Creatine Kinase 197 U/L (39-308)
[2024-06-29 19:03] LABS: Mycoplasma IgM Antibody Titer 70 U/mL
== END 2024-06-24 10:28 | disposition home or self-care (01) ==
LOC: CHSLAB 10:30
PROVIDERS: PCP Internal Medicine; Visit Provider Internal Medicine
DX: J18.9 Pneumonia, unspecified organism (principal); R00.1 Bradycardia, unspecified
CPT/HCPCS: 36415; 71046; 80053; 81003; 82550; 82553; 83880; 84484; 85027; 86140; 86738; 87634; 93005

== ENCOUNTER 2024-09-08 16:26 | Emergency (ER) | payer MEDICARE, SELFPAY ==
[2024-09-08] VITALS (7 sets, daily range): BP systolic 108–139; BP diastolic 67–99; PULSE 48–84; RESP 10–20; TEMP 36.8; O2SAT 91–99
--- NOTE | ~2024-09-08 | XR_ITS ---
HISTORY: injury left leg with lac mid tib fib, puncture wound COMPARISON: None TECHNIQUE: 2 views of the left tibia and fibula were performed. FINDINGS: No acute or subacute fracture. Joint spaces are preserved and alignment is maintained. Soft tissues are unremarkable without radiopaque foreign body or significant calcification. Age-appropriate mineralization. IMPRESSION: No acute or subacute fracture. No radiopaque foreign body. Reviewed, dictated and finalized at location A.
[2024-09-08] MEDS: LIDOCAINE 1% LOCAL INJ 10 ML VIAL 5 ML INFILTRATE (16:56)
--- NOTE | 2024-09-08 16:58 | ED_ITS ---
HPI - Extremity Injury (Lower) General Chief Complaint: Extremity Injury, Lower Stated Complaint: laceration Time Seen by Provider: 09/08/24 16:53 Source: patient Mode of arrival: ambulatory Limitations: no limitations History of Present Illness HPI Narrative: 69-year-old male a 3 arthritis, spinal stenosis, multiple injuries status post reconstructive surgeries with titanium in his ankle and neck, COPD was working on his deck when the floor gave out and he fell through the floor just before coming to the ED. He presents with -- 4 cm full-thickness laceration over his left felder. -- Abrasions over the left wrist no other injuries noted. No head injury. No neck or back pain. Patient is up-to-date on tetanus. complaint: leg injury Onset (ago): hour(s) ( 1 hour ago) Place: home Severity: moderate Relieving factors: nothing Exacerbating factors: nothing Context: fall Other symptoms: none Related Data Home Medications ?Medication ?Instructions ?Recorded ?Confirmed ?Last Taken ?Type acetaminophen 325 mg capsule 325 mg PO Q6H PRN 12/01/23 Unknown History (Tylenol) hydrocodone 7.5 mg-acetaminophen 1 tablet PO TID PRN 12/01/23 Unknown History 325 mg tablet ibuprofen 100 mg chewable tablet 200 mg PO Q6H PRN 12/01/23 Unknown History Allergies Allergy/AdvReac Type Severity Reaction Status Date / Time codeine Allergy Mild BLACK OUT Verified 09/08/24 16:39 Review of Systems Review of Systems: All systems reviewed & are unremarkable except as noted in HPI and below PMFSH Past Medical History Medical History COPD (chronic obstructive pulmonary disease) Chronic pain syndrome Degenerative joint disease Spinal stenosis Surgical History Surgical History Status post ORIF of fracture of ankle History of shoulder surgery right side History of elbow surgery right side History of appendectomy History of fusion of cervical spine C5, C6-7 cervical discectomy with fusion 12/2011 Social History Social History Social History: , retired electric welder/industrial pipefitter journeyman; lives at home with his . Smoking status: Current some day smoker (quit cigarettes 20yr ago, smokes 1 oz pipe tob/week) Alcohol intake: never Substance use: never Living arrangements: with family Occupation/Education: retired Gender identity (if verbalized by the patient): Male Exam Narrative: blood pressure 139/99. Oxygen saturation 99% on room air. Const: General: no acute distress Nutritional Appearance: well nourished Orientation/consciousness: patient oriented x3 Limitations: no limitations HENMT: Head: normal to inspection Ears: external ears normal Face/Nose/Sinus: Normal external nose present Face and sinus: normal facial exam Mouth: Yes Normal oral and palatal mucosa present Throat: posterior oropharynx normal Eyes: Conjunctivae: conjunctivae normal Pupils: Equal, round and reactive pupils present EOM: EOMs intact bilaterally Direct Ophthalmoscopy: no photophobia Neck: Neck: normal visual inspection, no lymphadenopathy and no meningeal signs Chest: Chest palpation & inspection: normal inspection of the chest Resp: Effort & Inspection: normal respiratory effort Auscultation: clear to auscultation bilaterally Other: no chest wall tenderness Cardio: Rate: regular rate Rhythm: regular rhythm GI: GI Palp: Yes Soft to palpation Auscultation: normal bowel sounds Other: No tenderness/rigidity /rebound : General: Yes no CVA tenderness Back/Spine/Pelvis: Back: no CVA tenderness Other: no cervical/thoracic / lumbar spine tenderness noted. Skin: General skin exam: normal color Rashes: no rashes Wounds: wounds noted Other: Left wrist has abrasions left felder has a 4 cm full-thickness laceration over the left leg distal neurovascular bundle is intac Neuro: General: patient oriented x3, moves all extremities, no meningeal signs, no focal motor deficits and CN's II-XI intact bilaterally Cranial nerves: Yes Nystagmus not present Speech: normal speech Gait exam (Neuro): Normal gait present Extrem: General: no clubbing, cyanosis or edema Other: Left leg has 4 cm full-thickness laceration over the felder Psych: Mental Status: mental status grossly normal Affect: normal affect Attitude: cooperative Course Course Emergency Course: accidental fall laceration over left felder measuring 4 cm-- x-ray did not show any fracture. left forearm abrasions Vital Signs Vital signs: Vital Signs Temperature 36.8 C 09/08/24 16:26 Pulse Rate 84 09/08/24 16:26 Respiratory Rate 20 09/08/24 16:26 Blood Pressure 139/99 H 04/23/25 16:26 Pulse Oximetry 99 09/08/24 16:26 Oxygen Delivery Room Air 09/08/24 16:26 Temperature 36.8 C 09/08/24 16:26 Pulse Rate 48 L 09/08/24 17:30 Respiratory Rate 14 09/08/24 17:30 Blood Pressure 123/67 09/08/24 17:30 Pulse Oximetry 94 09/08/24 17:30 Oxygen Delivery Room Air 09/08/24 17:30 Procedures Laceration Laceration 1: Date: 09/08/24 Time: 17:15 Site: lower extremity Side (If applicable): left Size (cm): 4 Description: linear Depth: [id number] Local Anesthetic: lidocaine 1% Amount of anesthesia used (mL): 5 Pre-repair: wound explored ====== Skin Level ====== Skin layer closed with: nylon Size (cm): 3-0 Number of sutures: 8 Technique: running ====== Subcutaneous Layer ====== Subcutaneous layer closed with: chromic gut and vicryl Size: 4-0 Number of sutures: 4 Technique: running ====== Muscle Layer ====== ====== Tendon Layer ====== MDM - Extremity Injury (Lower) MDM Narrative Medical decision making narrative: accidental fall left forearm abrasion left leg 4 cm laceration Differential Diagnosis Differential diagnosis: Likely other ( Left tibial fracture) Lab Data Attestation: I reviewed the patient's lab results. Discharge Plan Discharge Clinical Impression: Laceration of leg not thigh, left, Accidental fall Patient Disposition: Home Condition: Stable Instructions: Antibiotic Form, Laceration (ED), Laceration Without Closure (ED) Patient Language: Amharic Prescriptions: New amoxicillin-pot clavulanate 875-125 mg tablet 1 tablet PO Q12H Qty: 14 0RF No Action hydrocodone-acetaminophen 7.5-325 mg tablet 1 tablet PO TID PRN ibuprofen 100 mg tablet,chewable 200 mg PO Q6H PRN acetaminophen [Tylenol] 325 mg capsule 325 mg PO Q6H PRN Follow-up/Referrals: José Luis Pryor MD [Primary Care Provider] - Time of Disposition: 17:44
[2024-09-08] MEDS: HYDROmorphone HCL INJ (*CRX) 2 MG/ML VIAL 0.5 MG IM (17:04)
[2024-09-08] MEDS: ONDANSETRON HCL ODT 4 MG TABLET PO (17:04)
--- NOTE | 2024-09-08 17:30 | PC.NURSE ---
pt became pale and sl diaphoretic while watching suture procedure. pt laid down flat. cool compresses applied to face and neck
--- NOTE | 2024-09-08 17:35 | PC.NURSE ---
pt continues to be pale and sl diaphoretic. follows directes easily. resp even and non-labored. speech sl slurred. pt placed in reverse Trendelenburg position.
--- NOTE | 2024-09-08 17:40 | PC.NURSE ---
pt alert, speech clear, skin w/d and pink. resp even and non-labored. pt sits up in bed without assistance. rails remain ^ bilat since suture procedure began.
--- OUTSIDE RECORDS SUMMARY | 2024-09-08 17:40 | XMS_ITS | Clinical Summary ---
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 Not on file Not [...] Colorectal Cancer Screening Colonoscopy (10 Years) 1954 Hepatitis C 1972 DTaP, Tdap and Td Vaccines ( 1 - Tdap) 1973 Pneumococcal Vaccine: 50+ Ye ars (1 of 2 - PCV) 1973 Zoster Vaccines (1 of 2) 2004 Annual Medicare Wellness Visit 08/14/2019 COVID-19 Vaccine ( - 2023-2 5 season) 2024 RSV Immunization or 60+ Years (1 [...] age to complete this topic Insurance MEDIC[place] [address] MEDICARE [employer] Care Teams Ink Printer Relationship Specialty Start Date End Date José Luis Pryor MD [address] [place] [address] PCP - General INTERNAL MEDICINE 01/07/20 Naida Diaz, PROCESS ENGINEERING TECHNICIAN, EMAIL MARKETING COORDINATOR-C [address] [facility] [address] [place] [address] NURSE PRACTITIONER 01/27/20
--- OUTSIDE RECORDS SUMMARY | 2024-09-08 17:40 | XMS_ITS | Encounter Summary ---
Author Organization [facility] Address [address] [place] [address] Care Team Providers Care Pc Network Technician Name Role Phone José Luis Pryor MD Primary Care Provider [phone] Naida Diaz APRN INVESTMENT SALES ASSISTANT-C Unavailable Encounter Details Date Type Department Care Team (Late st Contact Info) Description 01/07/2020 Abstract [facility] [address] [place] [phone] Abstract, Doc [facility] Social History Tobacco Use Types Packs/Day Years Used Date Smoking Tobacco: Every Day Sex and Gender Information Value Date Recorded Sex Assigned at Not on file Legal Sex Male 7:42 PM CDT Gender Identity Not on file Sexual Orientation Not on file 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
--- OUTSIDE RECORDS SUMMARY | 2024-09-08 17:40 | XMS_ITS | Clinical Summary ---
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
--- OUTSIDE RECORDS SUMMARY | 2024-09-08 17:40 | XMS_ITS | Referral Summary ---
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
[2024-09-08] MEDS: AMOXICILLIN/CLAVULANATE K 875-125 MG TAB 1 TABLET PO (17:52)
[2024-09-08] MEDS: NEOMYCIN/POLYMYXIN/BACITRACIN OINTMENT PACKET 1 PACKET TOPICAL (17:52)
== END 2024-09-08 18:01 | disposition home or self-care (01) ==
PROVIDERS: Emergency Provider Internal Medicine Critical Care Medicine; PCP Internal Medicine
DX: S71.112A Laceration without foreign body, left thigh, initial encounter (principal); S60.812A Abrasion of left wrist, initial encounter; J44.9 Chronic obstructive pulmonary disease, unspecified; F17.210 Nicotine dependence, cigarettes, uncomplicated; Z79.891 Long term (current) use of opiate analgesic; Z79.1 Long term (current) use of non-steroidal anti-inflammatories (NSAID); W17.89XA Other fall from one level to another, initial encounter
CPT/HCPCS: 12032; 73590; 96372; 99284; A9270; J1171; J2003